=== PATIENT | female | born 1985 | race African-American/Black ===

== ENCOUNTER 2017-03-26 14:33 | Emergency (ER) | payer MEDICAID ==
[2017-03-26] MEDS ORDERED: HYDROMORPHONE HCL INJ/PF 2 MG/ML AMPULE IM ONE (15:53)
--- NOTE | 2017-03-26 16:16 | ER Document Report ---
HPI - HPI Patient complains to provider of: abscess Onset: Other - 2days Onset/Duration: Persistent Quality of pain: Sharp Pain Level: 5 Context: Patient complains of abscess to sacral area for the past 2 days. Patient denies any fever. Associated Symptoms: Other - Sacral abscess. denies: Fever Exacerbated by: Movement Relieved by: Denies Similar symptoms previously: Yes Recently seen / treated by doctor: No - ROS ROS below otherwise negative: Yes Systems Reviewed and Negative: Yes All other systems reviewed and negative - CONSTITUTIONAL Constitutional: DENIES: Fever - CARDIOVASCULAR Cardiovascular: DENIES: Chest pain - GASTROINTESTINAL Gastrointestinal: DENIES: Nausea, Patient vomiting - MUSCULOSKELETAL Musculoskeletal: REPORTS: Extremity pain - DERM Skin Color: Normal Past Medical History - General Information source: Patient - Social History Smoking Status: Current Every Day Smoker Chew tobacco use (# tins/day): No Frequency of alcohol use: None Drug Abuse: None 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 IN LAST 30 DAYS: No - HEENT HEENT: Atraumatic, Normocephalic - NECK Neck: Normal Inspection, Supple - RESPIRATORY Respiratory: Breath Sounds Normal, No Respiratory Distress O2 Sat by Pulse Oximetry: 97 - CARDIOVASCULAR Cardiovascular: Regular Rate, Regular Rhythm - BACK Back: Normal Inspection - MUSCULOSKELETAL/EXTREMETIES Musculoskeletal/Extremeties: MAEW, FROM - NEURO Level of Consciousness: Awake, Alert, Appropriate Motor/Sensory: No Motor Deficit - DERM Integumentary: Warm, Dry, Abscess - Abscess to left side of gluteal cleft measuring about 3 cm diameter Course - Vital Signs Vital signs: Temp Pulse Resp BP Pulse Ox 98.3 F 98 16 126/76 H 97 03/26/17 14:38 03/26/17 14:38 03/26/17 14:38 03/26/17 14:38 03/26/17 14:38 Procedures - Incision and Drainage Left Buttock Type: Simple Anesthetic type: 1% Lidocaine Blade size: 11 I&D procedure: Betadine prep applied Incision Method: Incision made by scalpel Amount/type of drainage: large amount of purulent drainage Discharge - Discharge Clinical Impression: Abscess, Encounter for incision and drainage procedure Condition: Stable Disposition: HOME, SELF-CARE Instructions: Abscess ([facility]), Oral Narcotic Medication ([facility]), Trimethoprim- Sulfa ([facility]), Post Incision and Drainage Additional Instructions: Return immediately for any new or worsening symptoms Followup with your primary care provider, call tomorrow to make a followup appointment Prescriptions: Oxycodone HCl/Acetaminophen [Percocet 5-325 mg Tablet] 1 tab PO ASDIR PRN #15 tablet PRN Reason: Sulfamethoxazole/Trimethoprim [Bactrim Ds Tablet] 1 each PO BID #20 tablet Forms: Return to Work
[2017-03-26] MEDS ORDERED: SULFAMETHOXAZOLE/TRIMETHOPRIM 800-160 MG TABLET PO ONE (17:27)
[2017-03-26 17:45] VITALS: BP 115/71
== END 2017-03-26 17:39 | disposition home or self-care (01) ==
LOC: ER 14:33
PROC: 0H98XZZ Drainage of Buttock Skin, External Approach (ICD-10-PCS; principal; 2017-03-26)
DX: L02.31 Cutaneous abscess of buttock (principal); F17.200 Nicotine dependence, unspecified, uncomplicated; I10 Essential (primary) hypertension; E11.9 Type 2 diabetes mellitus without complications
CPT/HCPCS: 99283; 96372; 10060; J1170; J3490

== ENCOUNTER 2017-06-14 16:16 | Emergency (ER) | payer MEDICAID ==
[2017-06-14] MEDS ORDERED: OXYCODONE-ACETAMINOPHEN 5-325 MG TABLET PO ONE (18:24)
--- NOTE | 2017-06-14 18:25 | ER Document Report ---
ED Medical Screen (RME) - General Chief Complaint: Low Back Pain Stated Complaint: LOWER BACK PAIN Time Seen by Provider: 06/14/17 18:23 Mode of Arrival: Wheelchair Information source: Patient Notes: Patient is a 31-year-old female who presents to the ER today for left flank pain 1 day. Patient has a history of kidney stones. She states that it does radiate around from the left lower back to the left lower abdomen. TRAVEL OUTSIDE OF THE [place] IN LAST 30 DAYS: No - Related Data Allergies/Adverse Reactions: amoxicillin Allergy (Verified 06/14/17 18:13) Penicillins Allergy (Verified 06/14/17 18:13) Past Medical History - General Information source: Patient - Social History Chew tobacco use (# tins/day): No Frequency of alcohol use: None Drug Abuse: None - Past Medical History Cardiac Medical History: Reports: Hx Hypertension Endocrine Medical History: Reports: Hx Diabetes Mellitus Type 2 Renal/ Medical History: Denies: Hx Peritoneal Dialysis Past Surgical History: Reports: Hx Oral Surgery - Immunizations Hx Diphtheria, Pertussis, Tetanus Vaccination: Yes History of Influenza Vaccine for 06/2017 - 11/2017 Season: Yes Review of Systems - Review of Systems Gastrointestinal: See HPI Genitourinary: See HPI Female Genitourinary: See HPI Physical Exam - Vital signs Vitals: Temp Pulse Resp BP Pulse Ox 98.0 F 123 H 22 H 119/73 100 06/14/17 17:31 06/14/17 17:31 06/14/17 17:31 06/14/17 17:31 06/14/17 17:31 - Notes Notes: PHYSICAL EXAMINATION: GENERAL: Obviously uncomfortable, in no acute distress. GI/: left CVA tenderness Course - Vital Signs Vital signs: Temp Pulse Resp BP Pulse Ox 98.0 F 123 H 22 H 119/73 100 06/14/17 17:31 06/14/17 17:31 06/14/17 17:31 06/14/17 17:31 06/14/17 17:31
[2017-06-14 19:01] LABS: HEMOGLOBIN 13.7 g/dL (12.0-15.5); HGB HCT DIFFERENCE -0.9; MEAN CORPUSCULAR HEMOGLOBIN 26.1 pg (27.0-33.4); MEAN CORPUSCULAR HGB CONC 32.7 g/dL (32.0-36.0); MEAN CORPUSCULAR VOLUME 80 fl (80-97); RED BLOOD COUNT 5.25 10^6/uL (3.72-5.28); RED CELL DISTRIBUTION WIDTH 14.1 % (11.5-14.0); WHITE BLOOD COUNT 19.6 10^3/uL (4.0-10.5)
[2017-06-14 19:08] LABS: APPEARANCE,URINE SLIGHTLY-CLOUDY; BILIRUBIN,URINE NEGATIVE (NEGATIVE); GLUCOSE, URINE >=500 mg/dL (NEGATIVE); KETONES,URINE NEGATIVE (NEGATIVE); LEUKOCYTE ESTERASE,URINE TRACE (NEGATIVE); NITRITE,URINE NEGATIVE (NEGATIVE); PROTEIN,URINE NEGATIVE (NEGATIVE); UROBILINOGEN,URINE NEGATIVE mg/dL (<2.0)
[2017-06-14 19:13] LABS: BASOPHILS % (MANUAL) 0 % (0-2); EOSINOPHILS % (MANUAL) 2 % (0-6); LYMPHOCYTES % (MANUAL) 28 % (13-45); TOTAL CELLS COUNTED 100
[2017-06-14 19:15] LABS: ANISOCYTOSIS SLIGHT; MICROCYTOSIS SLIGHT; POIKILOCYTOSIS SLIGHT; TARGET CELLS 1+; TEAR DROP CELLS SLIGHT; TOXIC GRANULATION SLIGHT; TOXIC VACUOLATION PRESENT
[2017-06-14 19:16] LABS: PLATELET CLUMPS PRESENT
[2017-06-14 19:17] LABS: HYPOCHROMASIA SLIGHT
[2017-06-14 19:23] LABS: ALANINE AMINOTRANSFERASE 22 U/L (9-52); ALBUMIN 4.1 g/dL (3.5-5.0); ALKALINE PHOSPHATASE 146 U/L (38-126); ANION GAP 16 (5-19); ASPARTATE AMINO TRANSFERASE 12 U/L (14-36); BILIRUBIN,DIRECT 0.3 mg/dL (0.0-0.4); BILIRUBIN,TOTAL 0.3 mg/dL (0.2-1.3); BLOOD UREA NITROGEN 11 mg/dL (7-20); CALCIUM 9.9 mg/dL (8.4-10.2); CARBON DIOXIDE 24 mmol/L (22-30); CHLORIDE 98 mmol/L (98-107); LIPASE 73.3 U/L (23-300); POTASSIUM 4.7 mmol/L (3.6-5.0); SODIUM 137.7 mmol/L (137-145); TOTAL PROTEIN 6.6 g/dL (6.3-8.2)
[2017-06-14 19:52] LABS: GLUCOSE 559 mg/dL (75-110)
[2017-06-14] MEDS ORDERED: NORMAL SALINE 1000 ML 1,000 ML IV ONE ×2 (20:08)
[2017-06-14] MEDS ORDERED: ONDANSETRON HCL INJ/PF 4 MG/2 ML SDV IV ONE (20:09)
--- NOTE | 2017-06-14 20:11 | ER Document Report ---
ED General - General Chief Complaint: Low Back Pain Stated Complaint: LOWER BACK PAIN Time Seen by Provider: 06/14/17 18:23 Mode of Arrival: Wheelchair Notes: Patient is a 31-year-old female comes emergency department for chief complaint of left flank pain that started yesterday, she states it feels like it radiates around to her mid to lower abdomen on the left side, she reports nausea but she denies vomiting. She also states that she feels like her "sugars are out of whack". She is a type II diabetic, takes metformin, insulin, states she has been taking insulin today. She denies fever, dysuria, she states she has been able to eat and drink. She also is on her menstrual cycle currently. Past medical history of kidney stones. TRAVEL OUTSIDE OF THE [place] IN LAST 30 DAYS: No - Related Data Allergies/Adverse Reactions: amoxicillin Allergy (Verified 06/14/17 18:13) Penicillins Allergy (Verified 06/14/17 18:13) Past Medical History - General Information source: Patient - Social History Smoking Status: Never Smoker Chew tobacco use (# tins/day): No Frequency of alcohol use: None Drug Abuse: None Lives with: Family Family History: Reviewed & Not Pertinent Patient has suicidal ideation: No Patient has homicidal ideation: No - Past Medical History Cardiac Medical History: Reports: Hx Hypertension Endocrine Medical History: Reports: Hx Diabetes Mellitus Type 2 Renal/ Medical History: Reports: Hx Kidney Stones. Denies: Hx Peritoneal Dialysis Past Surgical History: Reports: Hx Oral Surgery - Immunizations Hx Diphtheria, Pertussis, Tetanus Vaccination: Yes Review of Systems - Review of Systems Constitutional: No symptoms reported EENT: No symptoms reported Cardiovascular: No symptoms reported Respiratory: No symptoms reported Gastrointestinal: See HPI Genitourinary: See HPI Female Genitourinary: No symptoms reported Musculoskeletal: No symptoms reported Skin: No symptoms reported Hematologic/Lymphatic: No symptoms reported Neurological/Psychological: No symptoms reported Physical Exam - Vital signs Vitals: Temp Pulse Resp BP Pulse Ox 98.0 F 123 H 22 H 119/73 100 06/14/17 17:31 10 17:31 06/14/17 17:31 06/14/17 17:31 06/14/17 17:31 Interpretation: Normal - General General appearance: Appears well, Alert In distress: None - HEENT Head: Normocephalic, Atraumatic Eyes: Normal Pupils: PERRL - Respiratory Respiratory status: No respiratory distress Chest status: Nontender Breath sounds: Normal. No: Decreased air movement, Wheezing Chest palpation: Normal - Cardiovascular Rhythm: Regular, Tachycardia Heart sounds: Normal auscultation, S1 appreciated, S2 appreciated Murmur: No - Abdominal Inspection: Normal Distension: No distension Bowel sounds: Normal Tenderness: Tender - Tenderness in the left mid to lower quadrant on examination , no guarding, no rigidity, no rebound tenderness Organomegaly: No organomegaly - Back Back: Normal, Nontender. No: Tender, CVA tenderness - I do not appreciate any CVA tenderness on exam on either side, Vertebra tenderness - Extremities General upper extremity: Normal inspection, Nontender, Normal color, Normal ROM , Normal temperature General lower extremity: Normal inspection, Nontender, Normal color, Normal ROM , Normal temperature, Normal weight bearing. No: Ray's sign - Neurological Neuro grossly intact: Yes Cognition: Normal Orientation: AAOx4 Nimisha Coma Scale Eye Opening: Spontaneous Madison Coma Scale Verbal: Oriented [place] Coma Scale Motor: Obeys Commands Nimisha Coma Scale Total: 15 Speech: Normal Motor strength normal: LUE, RUE, LLE, RLE Sensory: Normal - Psychological Associated symptoms: Normal affect, Normal mood - Skin Skin Temperature: Warm Skin Moisture: Dry Skin Color: Normal Course - Re-evaluation Re-evalutation: Patient is actually well-appearing, smiling, laughing, she is initially tachycardic but otherwise she does not appear to be in any distress. She was medicated in triage. No CVA tenderness, very mild left lower quadrant tenderness which is nonspecific, no pelvic tenderness, patient denying pelvic pain or vaginal discharge. Patient does have a leukocytosis at 19,000, although no shift. There is elevated urine specific gravity, tachycardia. Tachycardia resolved with IV fluids, based on her initial assessment and recheck on exam I do not have any concern of acute abdominal abnormality. Appendix and gallbladder visualized and normal. Hyperglycemia at 559 but normal anion gap and bicarbonate. No ketones in the urine. CAT scan was performed, shows no obstructive pathology, shows unremarkable bowels, shows normal appendix. No acute findings. Patient is very well- appearing, tachycardia resolved, she is sitting up on the bed and asking to leave. Blood glucose is trending down. She states she has insulin and glucometer at home. Because of her leukocytosis and symptoms I did discuss return precautions in detail, patient states she will return if she develops any concerning symptoms but currently she feels great and she is ready to leave. She states she will follow-up with primary care as well. - Vital Signs Vital signs: Temp Pulse Resp BP Pulse Ox 98.0 F 68 18 104/63 98 06/14/17 17:31 06/14/17 23:21 06/14/17 23:21 06/14/17 23:21 06/14/17 23:21 - Laboratory Result Diagrams: 06/14/17 18:50 06/14/17 18:50 Laboratory results interpreted by me: 06/14/17 06/14/17 06/14/17 18:50 18:50 18:50 WBC 19.6 H MCH 26.1 L RDW 14.1 H Abs Neuts (Manual) 12.9 H Abs Lymphs (Manual) 5.7 H Glucose 559 H* POC Glucose AST 12 L Alkaline Phosphatase 146 H Urine Glucose (UA) >=500 H Urine Blood LARGE H Ur Leukocyte Esterase TRACE H 06/14/17 22:28 WBC MCH RDW Abs Neuts (Manual) Abs Lymphs (Manual) Glucose POC Glucose 341 H AST Alkaline Phosphatase Urine Glucose (UA) Urine Blood Ur Leukocyte Esterase Discharge - Discharge Clinical Impression: Flank pain, Hyperglycemia Condition: Stable Disposition: HOME, SELF-CARE Additional Instructions: Your CAT scan imaging does not show any abnormalities including no kidney stones or passing kidney stones. You have been rehydrated, continue to rehydrate at home, take your insulin, follow-up closely with your primary care provider for additional adjustments and management of your blood sugars. Return to the emergency department if he develop any concerning or worsening symptoms including fever, vomiting, returned or increased pain, or any other concerning symptoms. Forms: Return to Work Referrals: JUANCARLOS SILVA MD [Primary Care Provider] - Follow up as needed
--- NOTE | 2017-06-14 20:32 | RADIOLOGY REPORT (SQ) ---
EXAM DESCRIPTION: CT LTD RENAL STONE PROTOCOL ON COMPLETED DATE/TIME: 06/14/2017 8:23 pm REASON FOR STUDY: left flank pain radiating to llq COMPARISON: None. TECHNIQUE: CT scan of the abdomen and pelvis performed without intravenous or oral contrast. Images reviewed with lung, soft tissue, and bone windows. Reconstructed coronal and sagittal MPR images revi ewed. All images stored on PACS. All CT scanners at this facility use dose modulation, iterative reconstruction, and/or weight based d osing when appropriate to reduce radiation dose to as low as reasonably achievable (ALARA). [facility]: Dose Right [facility]: CareDose [facility]: Dose Right [facility]: Teradose 4D [facility]: Manifest RADIATION DOSE: Up-to-date CT equipment and radiation dose reduction techniques were employed. CTDIv ol: 17.9 mGy. DLP: 942 mGy-cm.mGy. LIMITATIONS: None. FINDINGS: LOWER CHEST: No significant findings. No nodules or infiltrates. NON-CONTRASTED LIVER, SPLEEN, ADRENALS: Evaluation limited by lack of IV contrast. No identified sign ificant masses. PANCREAS: No masses. No peripancreatic inflammatory changes. GALLBLADDER: No identified stones by CT criteria. No inflammatory changes to suggest cholecystitis. RIGHT KIDNEY AND URETER: No suspicious masses. Assessment limited by lack of IV contrast. No signif icant calcifications. No hydronephrosis or hydroureter. LEFT KIDNEY AND URETER: No suspicious masses. Assessment limited by lack of IV contrast. No signifi cant calcifications. No hydronephrosis or hydroureter. AORTA AND RETROPERITONEUM: No aneurysm. No retroperitoneal masses or adenopathy. BOWEL AND PERITONEAL CAVITY: No obvious masses or inflammatory changes. No free fluid. APPENDIX: Normal. PELVIS, BLADDER, AND ABDOMINAL WALL:No abnormal masses. No free fluid. Bladder normal. BONES: No significant findings. OTHER: No other significant finding. IMPRESSION: NO SIGNIFICANT OR ACUTE PROCESS IN THE ABDOMEN OR PELVIS. COMMENT: Quality ID # [id number]: Final reports with documentation of one or more dose reduction techniques (e.g., Automated exposure control, adjustment of the mA and/or kV according to patient size, use of iterative reconstruction technique) TECHNICAL DOCUMENTATION: JOB ID: [id number] All Rights Reserved
[2017-06-14] MEDS ORDERED: INSULIN REG, HUMAN 100 UNIT/ML 3 ML VIAL (PYX) SUBCUT ONE (20:49)
[2017-06-14] MEDS ORDERED: HYDROCODONE/ACETAMINOPHEN 5-325 MG 6 TAB/DSPK PO PRN (22:55)
[2017-06-14 23:22] VITALS: BP 104/63
== END 2017-06-14 23:22 | disposition home or self-care (01) ==
LOC: ER 16:16
DX: R10.9 Unspecified abdominal pain (principal); R11.0 Nausea; E11.65 Type 2 diabetes mellitus with hyperglycemia; I10 Essential (primary) hypertension; D72.829 Elevated white blood cell count, unspecified; R00.0 Tachycardia, unspecified; Z79.4 Long term (current) use of insulin; Z79.84 Long term (current) use of oral hypoglycemic drugs; Z88.0 Allergy status to penicillin; Z87.442 Personal history of urinary calculi
CPT/HCPCS: 99284; 96361; 96374; 36415; 82962; 83690; 85025; 81025; 80053; 81001; 76380; J1815; J2405; J7030

== ENCOUNTER 2017-06-28 20:27 | Emergency (ER) | payer MEDICAID ==
[2017-06-28] MEDS ORDERED: CLINDAMYCIN HCL 150 MG CAPSULE PO ONE (22:26)
--- NOTE | 2017-06-28 22:29 | ER Document Report ---
ED General - General Chief Complaint: Allergic Reaction Stated Complaint: POSSIBLE ALLERGIC REACTION Time Seen by Provider: 06/28/17 22:19 Notes: Patient is a 31-year-old female presents with complaint of an allergic reaction. Patient says she has a prescription from her Bactrim. She has a history of recurrent "cyst" in the right inguinal area. The cyst just outside the vaginal vulva. She says in the past these have resolved with antibiotics. She took Bactrim for the first time tonight the Bactrim caused her to break out in a rash and itching all over. The rash has since resolved. She has fevers. She has no other complaints at this time. TRAVEL OUTSIDE OF THE [place] IN LAST 30 DAYS: No - Related Data Allergies/Adverse Reactions: amoxicillin Allergy (Verified 06/28/17 22:38) Penicillins Allergy (Verified 06/28/17 22:38) Past Medical History - Social History Smoking Status: Never Smoker Frequency of alcohol use: None Drug Abuse: None Family History: Reviewed & Not Pertinent - Past Medical History Cardiac Medical History: Reports: Hx Hypertension Endocrine Medical History: Reports: Hx Diabetes Mellitus Type 2 Renal/ Medical History: Reports: Hx Kidney Stones. Denies: Hx Peritoneal Dialysis Past Surgical History: Reports: Hx Oral Surgery - Immunizations Hx Diphtheria, Pertussis, Tetanus Vaccination: Yes Review of Systems - Review of Systems Notes: My Normal Review Basic REVIEW OF SYSTEMS: CONSTITUTIONAL : Denies fever, chills, or sweats. Denies recent illness. RESPIRATORY: Denies cough, cold, or chest congestion. Denies shortness of breath, difficulty breathing, or wheezing. GASTROINTESTINAL: Denies abdominal pain. Denies nausea, vomiting, or diarrhea. Denies constipation. Last BM: GENITOURINARY: Denies difficulty urinating, painful urination, burning, frequency, or blood in urine. FEMALE GENITOURINARY: "Cyst" just outside the vaginal vulva. MUSCULOSKELETAL: Denies neck or back pain or joint pain or swelling. SKIN: Rash has since resolved. NEUROLOGICAL: Denies altered mental status or loss of consciousness. Denies headache. Denies weakness or paralysis or loss of use of either side. Denies problems with gait or speech. Denies sensory or motor loss. ALL OTHER SYSTEMS REVIEWED AND NEGATIVE. Physical Exam - Vital signs Vitals: Temp Pulse Resp BP Pulse Ox 98.6 F 88 18 113/51 L 100 10/23/17 21:50 06/28/17 21:50 06/28/17 21:50 06/28/17 21:50 06/28/17 21:50 - Notes Notes: General Appearance: Well nourished, alert, cooperative, no acute distress, no obvious discomfort. Well-appearing. Vitals: reviewed, See vital signs table. Head: no swelling or tenderness to the head Eyes: PERRL, EOMI, Conjuctiva clear Mouth: No decreasd moisture Throat: No tonsillar inflammation, No airway obstruction, No lymphadenopathy Lungs: No wheezing, No rales, No rhonci, No accessory muscle use, good air exchange bilaterally. Heart: Normal rate, Regular rythm, No murmur, no rub Pelvic: Patient has a cyst just lateral to the right side of the vaginal vulva. There are 2 other females in the room when I looked at the area. When I asked patient where the cyst was she immediately pulled down her pants before I could tell her to wait for an official female mortgage closer. There is a cyst just to the right of the vaginal vulva. It is small. Consistent with a early abscess. Does not require incision and drainage at this time. No significant surrounding erythema. Extremities: strength 5/5 in all extremities, good pulses in all extremities, no swelling or tenderness in the extremities, no edema. Skin: warm, dry, appropriate color, no rash Neuro: speech clear, oriented x 3, normal affect, responds appropriately to questions. Course - Re-evaluation Re-evalutation: 06/28/17 22:49 Patient has a small cystic area just lateral to the vaginal area on the right side. Is not consistent with a Bartholin's gland cyst and that that is actually outside the vaginal labia. It is consistent with possible early abscess but is very small and does not require drainage at this time. She says she has had these in the past and have cleared with antibiotics. She obviously is allergic to sulfa medications. I informed her that she must always tell her physicians that she is allergic to sulfa medications. I will place on clindamycin. I informed her that if the area is not improving in 2-3 days she must return to ER to consider I&D and reevaluation. Informed her if it enlarges any way she must return to ER immediately for incision and drainage. Encouraged her return to ER immediately if she has fevers. Patient agrees with plan will be discharged home. Dictation of this chart was performed using voice recognition software; therefore, there may be some unintended grammatical errors. - Vital Signs Vital signs: Temp Pulse Resp BP Pulse Ox 98.6 F 88 18 113/51 L 100 06/28/17 21:50 06/28/17 21:50 06/28/17 21:50 06/28/17 21:50 06/28/17 21:50 Discharge - Discharge Clinical Impression: Cyst Allergic reaction Qualifiers: Encounter type: initial encounter Qualified Code(s): T78.40XA - Allergy, unspecified, initial encounter Condition: Good Disposition: HOME, SELF-CARE Additional Instructions: The small cyst is most likely the beginning of a small abscess. Please be sure to take the antibiotics as prescribed. You must return to the ER immediately if at any time the cyst enlarges or is getting worse. Enlargement of the cyst would mean that it needs to be cut open to drain. Please also return to the ER if the cyst is not improving after being on the antibiotics after 3 days. Please tell every doctor you see that you are allergic to Sulfa drugs. Prescriptions: Clindamycin HCl 300 mg PO ASDIR #56 capsule Fluconazole [Diflucan 100 Mg Tablet] 150 mg PO DAILY #1 tablet Forms: Return to Work
[2017-06-28 22:59] VITALS: BP 107/51
== END 2017-06-28 22:50 | disposition home or self-care (01) ==
LOC: ER 20:27
DX: N89.8 Other specified noninflammatory disorders of vagina (principal); L27.0 Generalized skin eruption due to drugs and medicaments taken internally; T37.0X5A Adverse effect of sulfonamides, initial encounter; E11.9 Type 2 diabetes mellitus without complications; I10 Essential (primary) hypertension; Z88.0 Allergy status to penicillin; Z87.442 Personal history of urinary calculi
CPT/HCPCS: 99283; J3490

== ENCOUNTER 2017-09-09 14:07 | Emergency (ER) | payer MEDICAID ==
--- NOTE | 2017-09-09 14:34 | ER Document Report ---
HPI - HPI Patient complains to provider of: Buttocks abscess Onset: Other - 2 days Onset/Duration: Worse Pain Level: 5 Context: 32-year-old diabetic whose glucose was 346 today is complaining of a right buttocks abscess. No history of MRSA but she has had a groin abscess in the past. She checks her glucoses at home with fingersticks and takes insulin, she did not take her Lantus 45 units last night because she was asleep and does not have NovoLog at home to cover for the glucose of 346. She agrees to letting me do an Accu-Chek and covering her with insulin here she promises that she will take her Lantus tonight.. No fever or chills. She is very anxious about this procedure and agrees to having an incision and drainage but needs medication to relax her. She also states that she always gets a vaginal yeast infection when she takes antibiotics. She is allergic to penicillins and sulfa. Apical pulse 100. Temperature 98.8. Past Medical History - General Information source: Patient - Social History Smoking Status: Never Smoker Frequency of alcohol use: None Drug Abuse: None Lives with: Spouse/Significant other Family History: Reviewed & Not Pertinent - Past Medical History Cardiac Medical History: Reports: Hx Hypertension Endocrine Medical History: Reports: Hx Diabetes Mellitus Type 2 Renal/ Medical History: Reports: Hx Kidney Stones. Denies: Hx Peritoneal Dialysis Skin Medical History: Denies Hx MRSA Past Surgical History: Reports: Hx Oral Surgery - Immunizations Hx Diphtheria, Pertussis, Tetanus Vaccination: Yes Vertical Provider Document - CONSTITUTIONAL Agree With Documented VS: Yes Exam Limitations: No Limitations - INFECTION CONTROL TRAVEL OUTSIDE OF THE [place] IN LAST 30 DAYS: No - HEENT HEENT: Normocephalic - NECK Neck: Supple - RESPIRATORY Respiratory: Breath Sounds Normal, No Respiratory Distress O2 Sat by Pulse Oximetry: 98 - CARDIOVASCULAR Cardiovascular: Regular Rate, Regular Rhythm - MUSCULOSKELETAL/EXTREMETIES Musculoskeletal/Extremeties: MUSTAPHA HERNANDEZ - NEURO Level of Consciousness: Awake, Alert, Appropriate, Agitated - DERM Integumentary: Abscess - 4cm flutuant not red right buttock inferior to gluteal crest Course - Re-evaluation Re-evalutation: 09/09/17 16:00 Patient now states that Dr. Byrne told her to tell everybody that she is allergic to sulfa but not penicillin or amoxicillin. She is able to take Rocephin which I will order because she states the last time she took clindamycin given in the emergency room she got hives and she had to take Benadryl. She did not take another dose of clindamycin after that was given. 09/09/17 16:[address] Lockwood who says get the urine to see if she spilling any ketones. He is aware of her glucose and the situation. He said to give her 10 units of NovoLog. 09/09/17 18:37 late entry ketones negative. accucheck down to 321. Pt ready to go home - Vital Signs Vital signs: Temp Pulse Resp BP Pulse Ox 98.8 F 115 H 16 142/76 H 98 09/09/17 14:13 09/09/17 14:13 09/09/17 14:13 09/09/17 14:13 09/09/17 14:13 - Laboratory Result Diagrams: 09/09/17 15:21 09/09/17 15:21 Procedures - Incision and Drainage Right Buttock Time completed: 16:56 Type: Simple Anesthetic type: 1% Lidocaine mL's of anesthetic: 2 Blade size: 11 I&D procedure: Betadine prep applied Incision Method: Incision made by scalpel - Large amount of pus and blood smells like gram-negative bacteria will start her on Cipro and Flagyl because of that. Discharge - Discharge Clinical Impression: Incision and drainage of buttocks absces, Hyperglycemia known diabetic Condition: Good Disposition: HOME, SELF-CARE Instructions: Abscess ([facility]), Acetaminophen, Ciprofloxacin ([facility]), Fluconazole ( [facility]), Hyperglycemia ([facility]), Intravenous (IV) Fluids ([facility]), Metronidazole ([facility]), Post Incision and Drainage, Rocephin ([facility]) Additional Instructions: Keep the original dressing on for 2 days go get your novolog insulin today, take your lantus tonight! Remove the dressing on Wednesday and january shower using washcloth and let the soap and water get into the wound to clean it then placed dry dressing Return to the emergency room any fever chills worsening symptoms Diflucan for possible vaginal yeast infection Cipro and metronidazole for antibiotics No alcohol when he take the metronidazole warm compress wound cx is pending Prescriptions: Ciprofloxacin HCl [Cipro 500 mg Tablet] 500 mg PO BID #14 tablet Metronidazole [Flagyl 500 mg Tablet] 500 mg PO QID #28 tablet Forms: Return to Work
[2017-09-09] MEDS ORDERED: ACETAMINOPHEN 325 MG TABLET PO ONE (14:43)
[2017-09-09] MEDS ORDERED: ONDANSETRON 4 MG TAB.RAPDIS PO ONE (14:43)
[2017-09-09] MEDS ORDERED: CLINDAMYCIN HCL 150 MG CAPSULE PO ONE (14:43)
[2017-09-09] MEDS ORDERED: LIDOCAINE 4%/TETRACAINE 0.5%/EPI 0.18% 5 ML TOPICAL SOLN TOP ONE (14:44)
[2017-09-09] MEDS ORDERED: LORAZEPAM 1 MG TABLET PO ONE (14:45)
[2017-09-09] MEDS ORDERED: NORMAL SALINE 1000 ML 2,000 ML IV ONE (14:56)
[2017-09-09] MEDS ORDERED: CLINDAMYCIN PHOSPHATE INJ 300 MG/2 ML SDV IV ONE (14:57)
[2017-09-09 15:44] LABS: HEMOGLOBIN 13.1 g/dL (12.0-15.5); MEAN CORPUSCULAR HEMOGLOBIN 25.8 pg (27.0-33.4); MEAN CORPUSCULAR HGB CONC 32.6 g/dL (32.0-36.0); MEAN CORPUSCULAR VOLUME 79 fl (80-97); PLATELET COUNT 256 10^3/uL (150-450); RED BLOOD COUNT 5.07 10^6/uL (3.72-5.28); RED CELL DISTRIBUTION WIDTH 13.7 % (11.5-14.0)
[2017-09-09 15:55] LABS: ALANINE AMINOTRANSFERASE 31 U/L (9-52); ALBUMIN 3.7 g/dL (3.5-5.0); ALKALINE PHOSPHATASE 172 U/L (38-126); ANION GAP 12 (5-19); ASPARTATE AMINO TRANSFERASE 21 U/L (14-36); BILIRUBIN,DIRECT 0.2 mg/dL (0.0-0.4); BILIRUBIN,TOTAL 0.3 mg/dL (0.2-1.3); BLOOD UREA NITROGEN 7 mg/dL (7-20); CALCIUM 9.7 mg/dL (8.4-10.2); CARBON DIOXIDE 27 mmol/L (22-30); CHLORIDE 99 mmol/L (98-107); POTASSIUM 4.3 mmol/L (3.6-5.0); SODIUM 137.7 mmol/L (137-145); TOTAL PROTEIN 6.3 g/dL (6.3-8.2)
[2017-09-09] MEDS ORDERED: CEFTRIAXONE 1 GM/D5W RTU 1 GM/50 ML RTUPB IV ONE (16:00)
[2017-09-09 16:09] LABS: GLUCOSE 447 mg/dL (75-110)
[2017-09-09 16:13] LABS: ABSOLUTE LYMPHOCYTES# (MANUAL) 3.9 10^3/uL (0.5-4.7); ABSOLUTE NEUTROPHILS# (MANUAL) 19.1 10^3/uL (1.7-8.2); BAND NEUTROPHILS % (MANUAL) 2 % (3-5); BASOPHILS % (MANUAL) 0 % (0-2); EOSINOPHILS % (MANUAL) 0 % (0-6); LYMPHOCYTES % (MANUAL) 16 % (13-45); MONOCYTES % (MANUAL) 0 % (3-13); SEGMENTED NEUTROPHILS % (MAN) 81 % (42-78); TOTAL CELLS COUNTED 100
[2017-09-09 16:15] LABS: PLATELET CLUMPS PRESENT; PLATELET GIANT PRESENT; PLATELET LARGE PRESENT; SMUDGE CELLS PRESENT
[2017-09-09 16:16] LABS: HYPOCHROMASIA SLIGHT
[2017-09-09] MEDS ORDERED: INSULIN REG, HUMAN 100 UNIT/ML 3 ML VIAL (PYX) SUBCUT ONE (16:17)
[2017-09-09] MEDS ORDERED: INSULIN LISPRO 100 UNIT/ML 3 ML VIAL SUBCUT ONE (16:19)
[2017-09-09 16:21] LABS: PLATELET COMMENT ADEQUATE
[2017-09-09] MEDS ORDERED: CIPROFLOXACIN HCL 500 MG TABLET PO ONE (16:49)
[2017-09-09] MEDS ORDERED: METRONIDAZOLE 500 MG TABLET PO ONE (16:49)
[2017-09-09 17:42] LABS: APPEARANCE,URINE CLEAR; BILIRUBIN,URINE NEGATIVE (NEGATIVE); COLOR,URINE STRAW; GLUCOSE, URINE >=500 mg/dL (NEGATIVE); KETONES,URINE NEGATIVE (NEGATIVE); LEUKOCYTE ESTERASE,URINE NEGATIVE (NEGATIVE); NITRITE,URINE NEGATIVE (NEGATIVE); PROTEIN,URINE NEGATIVE (NEGATIVE); URINE SPECIFIC GRAVITY 1.026; UROBILINOGEN,URINE NEGATIVE mg/dL (<2.0)
[2017-09-09 18:22] VITALS: BP 114/50
== END 2017-09-09 18:22 | disposition home or self-care (01) ==
LOC: ER 14:07
DX: L02.31 Cutaneous abscess of buttock (principal); E11.65 Type 2 diabetes mellitus with hyperglycemia; Z79.4 Long term (current) use of insulin; F41.9 Anxiety disorder, unspecified; I10 Essential (primary) hypertension; Z88.2 Allergy status to sulfonamides
CPT/HCPCS: 99283; 96361; 96365; 36415; 87040; 87070; 87205; 82962; 85025; 87075; 87077; 80053; 81001; 87186; 10060; J3490 ×4; S0119; J1815; J7030; J0696

== ENCOUNTER 2018-02-16 11:53 | Emergency (ER) | payer MEDICAID ==
[2018-02-16 12:13] VITALS: BP 114/50
[2018-02-16] MEDS ORDERED: IBUPROFEN 800 MG TABLET PO ONE (13:34)
[2018-02-16] MEDS ORDERED: ACETAMINOPHEN 325 MG TABLET PO ONE (13:34)
--- NOTE | 2018-02-16 13:34 | ER Document Report ---
ED Medical Screen (RME) - General Chief Complaint: Abscess Stated Complaint: ABSCESS Time Seen by Provider: 02/16/18 13:29 TRAVEL OUTSIDE OF THE [place] IN LAST 30 DAYS: No - HPI Notes: 02/16/18 13:34 Abscess on buttocks - Related Data Allergies/Adverse Reactions: amoxicillin Allergy (Verified 02/16/18 13:29) clindamycin Allergy (Verified 02/16/18 13:29) Penicillins Allergy (Verified 02/16/18 13:29) Sulfa (Sulfonamide Antibiotics) Allergy (Verified 02/16/18 13:29) Past Medical History - Social History Chew tobacco use (# tins/day): No Frequency of alcohol use: None Drug Abuse: None - Past Medical History Cardiac Medical History: Reports: Hx Hypertension Endocrine Medical History: Reports: Hx Diabetes Mellitus Type 2 Renal/ Medical History: Reports: Hx Kidney Stones. Denies: Hx Peritoneal Dialysis Skin Medical History: Denies Hx MRSA Past Surgical History: Reports: Hx Oral Surgery - Immunizations Hx Diphtheria, Pertussis, Tetanus Vaccination: Yes History of Influenza Vaccine for 06/2017 - 11/2017 Season: Yes Review of Systems - Review of Systems Skin: Other - Abscess on the buttocks -: Yes All other systems reviewed and negative Physical Exam - Vital signs Vitals: Temp Pulse Resp BP Pulse Ox 98.9 F 95 20 114/50 L 99 02/16/18 12:12 02/16/18 12:12 02/16/18 12:12 02/16/18 12:12 02/16/18 12:12 - Respiratory Respiratory status: No respiratory distress Chest status: Nontender Course - Vital Signs Vital signs: Temp Pulse Resp BP Pulse Ox 98.9 F 95 20 114/50 L 99 02/16/18 12:12 02/16/18 12:12 02/16/18 12:12 02/16/18 12:12 02/16/18 12:12
[2018-02-16] MEDS ORDERED: LIDOCAINE 4%/TETRACAINE 0.5%/EPI 0.18% 5 ML TOPICAL SOLN TOP ONE (14:35)
--- NOTE | 2018-02-16 14:35 | ER Document Report ---
ED Skin Rash/Insect Bite/Abscs <TOMYVALENTE - Last Filed: 02/16/18 15:54> - General Mode of Arrival: Ambulatory Information source: Patient TRAVEL OUTSIDE OF THE [place] IN LAST 30 DAYS: No <STEPHANIE HERNANDEZ - Last Filed: 02/16/18 19:46> - General Chief Complaint: Abscess Stated Complaint: ABSCESS Time Seen by Provider: 02/16/18 13:29 Notes: Patient is a 32 year old female with hypertension, diabetes type 2 with a history of kidney stones and an abscess presents to the emergency department complaining of an abscess on the right side of her inner buttocks. Patient states she noticed the abscess around 1800 yesterday. Patient states she was seen and discharged in the emergency department approximately 2 months ago for an abscess in the same location. Patient mentions being seen by her PCP yesterday for having elevated a1c's. She states her Lantus was increased from 45 units to 70 units and her NovoLog remained the same at 18 units 3x a day. She then states she has yet to shrimp picker her NovoLog from the pharmacy. (STEPHANIE HERNANDEZ) - Related Data Allergies/Adverse Reactions: amoxicillin Allergy (Verified 02/16/18 13:29) clindamycin Allergy (Verified 02/16/18 13:29) Penicillins Allergy (Verified 02/16/18 13:29) Sulfa (Sulfonamide Antibiotics) Allergy (Verified 02/16/18 13:29) Past Medical History - General Information source: Patient - Social History Smoking Status: Current Every Day Smoker Cigarette use (# per day): Yes - 5-6 cigarettes a day Chew tobacco use (# tins/day): No Frequency of alcohol use: None Drug Abuse: None Family History: Reviewed & Not Pertinent Patient has suicidal ideation: No Patient has homicidal ideation: No - Past Medical History Cardiac Medical History: Reports: Hx Hypertension Endocrine Medical History: Reports: Hx Diabetes Mellitus Type 2 Renal/ Medical History: Reports: Hx Kidney Stones Past Surgical History: Reports: Hx Oral Surgery - Immunizations Hx Diphtheria, Pertussis, Tetanus Vaccination: Yes <STEPHANIE HERNANDEZ - Last Filed: 02/16/18 19:46> Review of Systems - Review of Systems Constitutional: No symptoms reported EENT: No symptoms reported Cardiovascular: No symptoms reported Respiratory: No symptoms reported Gastrointestinal: No symptoms reported Genitourinary: No symptoms reported Female Genitourinary: No symptoms reported Musculoskeletal: No symptoms reported Skin: See HPI Hematologic/Lymphatic: No symptoms reported Neurological/Psychological: No symptoms reported -: Yes All other systems reviewed and negative <STEPHANIE HERNANDEZ - Last Filed: 02/16/18 19:46> Physical Exam <VALENTE HUITRON - Last Filed: 02/16/18 15:54> - General General appearance: Appears well, Alert In distress: None - HEENT Head: Normocephalic, Atraumatic Eyes: Normal Conjunctiva: Normal Extraocular movements intact: Yes Pupils: PERRL Neck: Normal - Respiratory Respiratory status: No respiratory distress - Abdominal Inspection: Other - Overweight Distension: No distension - Rectal Tenderness: Yes - Back Back: Normal - Extremities General upper extremity: Normal ROM General lower extremity: Normal ROM - Neurological Neuro grossly intact: Yes Cognition: Normal Orientation: AAOx4 Brooks Coma Scale Eye Opening: Spontaneous Brooks Coma Scale Verbal: Oriented Brooks Coma Scale Motor: Obeys Commands Brooks Coma Scale Total: 15 Speech: Normal - Psychological Associated symptoms: Normal affect, Normal mood - Skin Skin Temperature: Warm Skin Moisture: Dry Skin Color: Normal <STEPHANIE HERNANDEZ - Last Filed: 02/16/18 19:46> - Vital signs Vitals: Temp Pulse Resp BP Pulse Ox 98.9 F 95 20 114/50 L 99 02/16/18 12:12 02/16/18 12:12 02/16/18 12:12 02/16/18 12:12 02/16/18 12:12 - Rectal Notes: Right buttocks contains an abscess midline, close to the right of the buttock cleft. Abscess is bulging and pointing with induration. Extends 6cm across the upper sacral region and is tender to palpation. (STEPHANIE HERNANDEZ) Course - Laboratory Result Diagrams: 02/16/18 14:55 02/16/18 14:55 <VALENTE HUITRON - Last Filed: 02/16/18 15:54> - Laboratory Result Diagrams: 02/16/18 14:55 02/16/18 14:55 <STEPHANIE HERNANDEZ - Last Filed: 02/16/18 19:46> - Re-evaluation Re-evalutation: 02/16/18 16:04 PROCEEDURE: The right buttock abscess near the cleft head the skin prepped with Shur-Clens. The abscess area was anesthetized with 5 mL's of 1% lidocaine. The abscess was incised with a #11 blade making about a 1.5cm incision. Large amount of white yellow pus and blood was released. The wound cavity was probed down about 2 cm deep. The cavity was copiously irrigated with 25 mL's of normal saline until there was no blood or pus returning. The cavity was packed with half-inch iodoform gauze. 4 x 4 sterile dressing was applied to the wound to catch the drainage. (VALENTE HUITRON) - Vital Signs Vital signs: Temp Pulse Resp BP Pulse Ox 98.9 F 95 20 114/50 L 99 02/16/18 12:12 02/16/18 12:12 02/16/18 12:12 02/16/18 12:12 02/16/18 12:12 - Laboratory Laboratory results interpreted by me: 02/16/18 02/16/18 02/16/18 14:55 14:55 14:55 WBC 18.4 H MCH 25.8 L Absolute Neutrophils 12.4 H Glucose 329 H Alkaline Phosphatase 146 H Total Protein 5.9 L Albumin 3.3 L Urine Glucose (UA) >=500 H Discharge <VALENTE HUITRON - Last Filed: 02/16/18 15:54> <STEPHANIE HERNANDEZ - Last Filed: 02/16/18 19:46> - Discharge Clinical Impression: Abscess of buttock, right, Poorly controlled diabetes mellitus Leukocytosis Qualifiers: Leukocytosis type: unspecified Qualified Code(s): D72.829 - Elevated white blood cell count, unspecified Condition: Stable Disposition: HOME, SELF-CARE Additional Instructions: Abscess: You have an abscess (boil). This a pus-forming infection, usually due to staph. Some boils may be left to drain on their own, but most require lancing. From the time the tender lump first appears, it may be three or four days before the abscess is ready to marcia. Local heat and rest help at this stage of treatment. An antibiotic may prevent spread of the infection. Once the abscess is opened, packing may be placed into it. This is done so pus is not sealed inside by premature closure of the cavity. The packing will be removed at your follow-up visit or you may be advised to remove it yourself at home. Sometimes this packing must be replaced a few times during healing. The wound will heal with surprisingly little scar. Depending on the size and location of an abscess, healing can take one to four weeks. You may shower and wash the area around the incision site two or three times a day. Antibiotics may be prescribed, but are usually not necessary after an abscess has been drained. If you develop fever, chilling, worsening pain, or increasing swelling in the area, call the doctor or return immediately. Take medication as prescribed. Return in 2 days to have the packing removed and to recheck the wound. Try to get your NovoLog insulin filled. Your blood sugar is probably higher than it would otherwise be, due to the infection. Soap and a warm tub of water a few times a day. After the packing was removed, keep the wound open using Q-tips dipped in peroxide and probing the full extent of the wound a few times a day, every day. RETURN TO THE EMERGENCY ROOM IF ANY NEW OR WORSENING SYMPTOMS. Prescriptions: Ciprofloxacin HCl [Cipro 500 mg Tablet] 500 mg PO BID #14 tablet Metronidazole [Flagyl 500 mg Tablet] 500 mg PO TID #21 tablet Oxycodone HCl/Acetaminophen [Percocet 5-325 mg Tablet] 1 - 2 tab PO ASDIR PRN # 15 tablet PRN Reason: Referrals: JUANCARLOS SILVA MD [Primary Care Provider] - Follow up as needed Kolbyibfrank Attestation: 02/16/18 15:59 I personally performed the services described in the documentation, reviewed and edited the documentation which was dictated to the scribe in my presence, and it accurately records my words and actions. (VALENTE HUITRON) Scribe Documentation - Scribe Written by Merlin:: Merlin Asencio, 02/15/2018 14:56 acting as scribe for :: Tomy <STEPHANIE HERNANDEZ - Last Filed: 02/16/18 19:46>
[2018-02-16] MEDS ORDERED: FENTANYL CITRATE INJ/PF 100 MCG/2 ML AMPUL IM ONE (14:37)
[2018-02-16] MEDS ORDERED: ONDANSETRON 4 MG TAB.RAPDIS PO ONE (14:39)
[2018-02-16] MEDS ORDERED: LIDOCAINE 1% INJ-PF (10 MG/ML) 30 ML SDV INJ ONE (14:39)
[2018-02-16 15:21] LABS: ABSOLUTE BASOPHILS # (AUTO) 0.2 10^3/uL (0.0-0.2); ABSOLUTE EOSINOPHILS # (AUTO) 0.5 10^3/uL (0.0-0.6); ABSOLUTE LYMPHOCYTES (AUTO) 4.5 10^3/uL (0.5-4.7); ABSOLUTE MONOCYTES (AUTO) 0.9 10^3/uL (0.1-1.4); ABSOLUTE NEUT (AUTO) 12.4 10^3/uL (1.7-8.2); BASOPHILS % (AUTO) 0.9 % (0-2); EOSINOPHILS % (AUTO) 2.6 % (0-6); HEMATOCRIT 39.8 % (36.0-47.0); HEMOGLOBIN 12.9 g/dL (12.0-15.5); LYMPHOCYTES % (AUTO) 24.4 % (13-45); MEAN CORPUSCULAR HEMOGLOBIN 25.8 pg (27.0-33.4); MEAN CORPUSCULAR HGB CONC 32.3 g/dL (32.0-36.0); MEAN CORPUSCULAR VOLUME 80 fl (80-97); MONOCYTES % (AUTO) 4.7 % (3-13); PLATELET COUNT 191 10^3/uL (150-450); RED BLOOD COUNT 4.98 10^6/uL (3.72-5.28); SEGMENTED NEUTROPHILS % (AUTO) 67.4 % (42-78); TOTAL CELLS COUNTED % (AUTO) 100 %; WHITE BLOOD COUNT 18.4 10^3/uL (4.0-10.5)
[2018-02-16 15:45] LABS: ALANINE AMINOTRANSFERASE 22 U/L (9-52); ALBUMIN 3.3 g/dL (3.5-5.0); ALKALINE PHOSPHATASE 146 U/L (38-126); ANION GAP 7 (5-19); ASPARTATE AMINO TRANSFERASE 14 U/L (14-36); BILIRUBIN,DIRECT 0.2 mg/dL (0.0-0.4); BILIRUBIN,TOTAL 0.2 mg/dL (0.2-1.3); BLOOD UREA NITROGEN 9 mg/dL (7-20); CALCIUM 9.3 mg/dL (8.4-10.2); CARBON DIOXIDE 29 mmol/L (22-30); CHLORIDE 106 mmol/L (98-107); GLUCOSE 329 mg/dL (75-110); POTASSIUM 4.7 mmol/L (3.6-5.0); SODIUM 142.2 mmol/L (137-145); TOTAL PROTEIN 5.9 g/dL (6.3-8.2)
[2018-02-16 15:53] LABS: APPEARANCE,URINE CLEAR; BILIRUBIN,URINE NEGATIVE (NEGATIVE); COLOR,URINE STRAW; GLUCOSE, URINE >=500 mg/dL (NEGATIVE); KETONES,URINE NEGATIVE (NEGATIVE); LEUKOCYTE ESTERASE,URINE NEGATIVE (NEGATIVE); NITRITE,URINE NEGATIVE (NEGATIVE); PROTEIN,URINE NEGATIVE (NEGATIVE); URINE SPECIFIC GRAVITY 1.028; UROBILINOGEN,URINE NEGATIVE mg/dL (<2.0)
[2018-02-16] MEDS ORDERED: CIPROFLOXACIN HCL 500 MG TABLET PO ONE (15:53)
[2018-02-16] MEDS ORDERED: METRONIDAZOLE 500 MG TABLET PO ONE (15:53)
[2018-02-16] MEDS ORDERED: INSULIN REG, HUMAN 100 UNIT/ML 3 ML VIAL (PYX) SUBCUT ONE (15:54)
== END 2018-02-16 16:18 | disposition home or self-care (01) ==
LOC: ER 11:53
DX: I10 Essential (primary) hypertension (principal); L02.31 Cutaneous abscess of buttock; F17.210 Nicotine dependence, cigarettes, uncomplicated; E11.65 Type 2 diabetes mellitus with hyperglycemia; Z79.4 Long term (current) use of insulin; Z88.0 Allergy status to penicillin; Z88.1 Allergy status to other antibiotic agents; Z88.2 Allergy status to sulfonamides
CPT/HCPCS: 99283; 96374; 36415; 87070; 87205; 85025; 87075; 87077; 80053; 81001; 10060; J3490 ×6; S0119; J3010; J1815

== ENCOUNTER 2019-03-10 01:45 | Emergency (ER) | payer MEDICAID ==
[2019-03-10] MEDS ORDERED: PROMETHAZINE HCL 25 MG TABLET PO ONE (04:55)
[2019-03-10] MEDS ORDERED: OXYCODONE-ACETAMINOPHEN 5-325 MG TABLET PO ONE (04:55)
[2019-03-10] MEDS ORDERED: LIDOCAINE 4% TRANSPARENT DRESSING 5 GM KIT TP ONE (04:55)
--- NOTE | 2019-03-10 04:56 | ER Document Report ---
ED Skin Rash/Insect Bite/Abscs - General Chief Complaint: Cyst Stated Complaint: CYST ON LEFT THIGH, BUTTOCKS Time Seen by Provider: 03/10/19 04:50 Primary Care Provider: JUANCARLOS SILVA MD [ACTIVE STAFF] - Follow up in 3-5 days Notes: Patient is a 33-year-old female that comes to the emergency department for chief complaint of an abscess on the left lower buttock for the past 2 to 3 days. She states it drained a little but then stopped and has not resolved. She denies fever/chills. She has a history of abscesses. She does have insulin-dependent diabetes as well. She denies painful bowel movements, she denies any other complaints. TRAVEL OUTSIDE OF THE [place] IN LAST 30 DAYS: No - Related Data Allergies/Adverse Reactions: amoxicillin Allergy (Verified 02/16/18 13:29) clindamycin Allergy (Verified 02/16/18 13:29) Penicillins Allergy (Verified 02/16/18 13:29) Sulfa (Sulfonamide Antibiotics) Allergy (Verified 02/16/18 13:29) Past Medical History - General Information source: Patient - Social History Smoking Status: Never Smoker Frequency of alcohol use: None Drug Abuse: None Lives with: Family Family History: Reviewed & Not Pertinent - Past Medical History Cardiac Medical History: Reports: Hx Hypertension Endocrine Medical History: Reports: Hx Diabetes Mellitus Type 2 Renal/ Medical History: Reports: Hx Kidney Stones. Denies: Hx Peritoneal Dialysis Skin Medical History: Denies Hx MRSA Past Surgical History: Reports: Hx Oral Surgery - Immunizations Hx Diphtheria, Pertussis, Tetanus Vaccination: Yes Review of Systems - Review of Systems Constitutional: No symptoms reported EENT: No symptoms reported Cardiovascular: No symptoms reported Respiratory: No symptoms reported Gastrointestinal: No symptoms reported Genitourinary: No symptoms reported Female Genitourinary: No symptoms reported Musculoskeletal: No symptoms reported Skin: See HPI Hematologic/Lymphatic: No symptoms reported Neurological/Psychological: No symptoms reported Physical Exam - Vital signs Vitals: Temp Pulse Resp BP Pulse Ox 98.4 F 108 H 15 144/79 H 98 03/10/19 01:50 03/10/19 01:50 03/10/19 01:50 03/10/19 01:50 03/10/19 01:50 - Notes Notes: GENERAL: Alert, interacts well. No acute distress. HEAD: Normocephalic, atraumatic. EYES: Pupils equal, round, and reactive to light. Extraocular movements intact. ENT: Oral mucosa moist, tongue midline. Oropharynx unremarkable. Airway patent. LUNGS: Clear to auscultation bilaterally, no wheezes, rales, or rhonchi. No respiratory distress. HEART: Regular rate and rhythm. No murmur ABDOMEN: Soft, non-tender. Non-distended. Bowel sounds present in all 4 quadrants. GENITOURINARY: Deferred EXTREMITIES: Moves all 4 extremities spontaneously. No edema, normal radial and dorsalis pedis pulses bilaterally. No cyanosis. BACK: no cervical, thoracic, lumbar midline tenderness. No saddle anesthesia, normal distal neurovascular exam. NEUROLOGICAL: Alert and oriented x3. Normal speech. Cranial nerves II through XII grossly intact. PSYCH: Normal affect, normal mood. SKIN: There is an abscess at the base of the left buttock over the medial aspect, this has some mild surrounding cellulitis, there is also nearby erythema suggestive of yeast, however the tenderness, induration, fluctuance, and rhythm I do not extend to the perianal area. Course - Re-evaluation Re-evalutation: Evaluation consistent with abscess, this was clean, drain, patient was given Diflucan, she was given doxycycline based on her allergies and reported antibiotic she will not take. Patient refused to let me cut this to the extent that I wanted and she also declined packing. I discussed careful cleaning, dressing, follow-up, and return precautions with patient and family member. They state understanding and agreement with plan. - Vital Signs Vital signs: Temp Pulse Resp BP Pulse Ox 98.4 F 108 H 15 144/79 H 98 03/10/19 01:50 03/10/19 01:50 03/10/19 01:50 03/10/19 01:50 03/10/19 01:50 Procedures - Incision and Drainage Left medial buttock Type: Single Anesthetic type: Other - L.E.T. Blade size: 11 I&D procedure: Shurclens applied, Sterile dressing applied Incision Method: Incision made by scalpel Amount/type of drainage: about 10 cc of purulent drainage Discharge - Discharge Clinical Impression: Abscess Condition: Stable Disposition: HOME, SELF-CARE Additional Instructions: The abscess has been drained. Keep clean, clean with soap and water, keep absorbing dressing over the area. You have been treated with Diflucan for the yeast, take the Diflucan again after you complete the doxycycline antibiotic. Follow-up closely with primary care. Return if you worsen including developing or spreading redness, fever/chills, or any other concerning or worsening symptoms. Prescriptions: Doxycycline Hyclate 100 mg PO BID #14 capsule Fluconazole [Diflucan] 150 mg PO ONCE PRN #1 tablet PRN Reason: Referrals: JUANCARLOS SILVA MD [ACTIVE STAFF] - Follow up in 3-5 days
[2019-03-10] MEDS ORDERED: FLUCONAZOLE 100 MG TABLET PO ONE (06:09)
[2019-03-10 06:34] VITALS: BP 134/83
== END 2019-03-10 06:25 | disposition home or self-care (01) ==
LOC: ER 01:45
DX: L02.31 Cutaneous abscess of buttock (principal); L03.317 Cellulitis of buttock; E11.9 Type 2 diabetes mellitus without complications; Z79.4 Long term (current) use of insulin; I10 Essential (primary) hypertension; Z88.0 Allergy status to penicillin; Z88.1 Allergy status to other antibiotic agents; Z88.2 Allergy status to sulfonamides
CPT/HCPCS: 99283; 10060; J3490 ×3

== ENCOUNTER 2019-06-04 08:00 | Emergency (ER) | payer MEDICAID ==
[2019-06-04 09:59] LABS: ABSOLUTE BASOPHILS # (AUTO) 0.1 10^3/uL (0.0-0.2); ABSOLUTE EOSINOPHILS # (AUTO) 0.4 10^3/uL (0.0-0.6); ABSOLUTE MONOCYTES (AUTO) 0.7 10^3/uL (0.1-1.4); ABSOLUTE NEUT (AUTO) 8.2 10^3/uL (1.7-8.2); BASOPHILS % (AUTO) 0.9 % (0-2); EOSINOPHILS % (AUTO) 2.8 % (0-6); HEMATOCRIT 37.5 % (36.0-47.0); HEMOGLOBIN 12.1 g/dL (12.0-15.5); LYMPHOCYTES % (AUTO) 29.8 % (13-45); MEAN CORPUSCULAR HEMOGLOBIN 25.9 pg (27.0-33.4); MEAN CORPUSCULAR HGB CONC 32.3 g/dL (32.0-36.0); MEAN CORPUSCULAR VOLUME 80 fl (80-97); MONOCYTES % (AUTO) 5.2 % (3-13); PLATELET COUNT 197 10^3/uL (150-450); RED BLOOD COUNT 4.68 10^6/uL (3.72-5.28); RED CELL DISTRIBUTION WIDTH 14.5 % (11.5-14.0); SEGMENTED NEUTROPHILS % (AUTO) 61.3 % (42-78); TOTAL CELLS COUNTED % (AUTO) 100 %; WHITE BLOOD COUNT 13.4 10^3/uL (4.0-10.5)
[2019-06-04 10:03] LABS: APPEARANCE,URINE CLEAR; BILIRUBIN,URINE NEGATIVE (NEGATIVE); COLOR,URINE YELLOW; GLUCOSE, URINE NEGATIVE (NEGATIVE); KETONES,URINE NEGATIVE (NEGATIVE); LEUKOCYTE ESTERASE,URINE NEGATIVE (NEGATIVE); NITRITE,URINE NEGATIVE (NEGATIVE); PROTEIN,URINE NEGATIVE (NEGATIVE); UROBILINOGEN,URINE NEGATIVE mg/dL (<2.0)
[2019-06-04] MEDS ORDERED: DIPHENHYDRAMINE HCL 50 MG/ML VIAL IV ONE (10:23)
[2019-06-04] MEDS ORDERED: KETOROLAC TROMETHAMINE INJ/PF 30 MG/1 ML SDV IV ONE (10:23)
[2019-06-04] MEDS ORDERED: NORMAL SALINE 1000 ML 1,000 ML IV ONE (10:23)
[2019-06-04] MEDS ORDERED: METOCLOPRAMIDE HCL INJ/PF 10 MG/2 ML SDV IV ONE (10:23)
--- NOTE | 2019-06-04 10:29 | ER Document Report ---
ED GI/ - General Chief Complaint: Nausea/Vomiting/Diarrhea Stated Complaint: NAUSEA/VOMITNG Time Seen by Provider: 06/04/19 10:12 Primary Care Provider: MOHAMUD SAMPSON PA-C [Primary Care Provider] - Follow up as needed Notes: Patient is a 33-year-old female with a history of gallstones who presents to the emergency department with a chief complaint of right upper quadrant pain. Patient states around 330 this morning she woke up with nausea, vomiting and diarrhea. Patient reports her pain is specifically in the right upper quadrant and feels like it is underneath her right rib. Patient also reports developing a headache this morning after multiple episodes of vomiting. Patient denies fever. Patient denies blood in stool. Patient reports she has had 2 episodes of vomiting and 7 episodes of nonbloody liquid diarrhea. Patient reports she is also having a frontal headache. Patient denies visual changes or photosensitivity. Patient denies urinary symptoms. Patient reports she is a type II diabetic on insulin and she is supposed to start on metformin which is asked to get a prescription filled. Patient denies vaginal bleeding or discharge. Patient reports her last menstrual cycle was May 15. TRAVEL OUTSIDE OF THE [place] IN LAST 30 DAYS: No - Related Data Allergies/Adverse Reactions: amoxicillin Allergy (Verified 06/04/19 08:01) clindamycin Allergy (Verified 06/04/19 08:01) Penicillins Allergy (Verified 06/04/19 08:01) Sulfa (Sulfonamide Antibiotics) Allergy (Verified 06/04/19 08:01) Past Medical History - General Information source: Patient - Social History Smoking Status: Unknown if Ever Smoked Lives with: Family Family History: Reviewed & Not Pertinent Patient has suicidal ideation: No Patient has homicidal ideation: No - Past Medical History Cardiac Medical History: Reports: Hx Hypertension Pulmonary Medical History: Reports: None EENT Medical History: Reports: None Neurological Medical History: Reports: None Endocrine Medical History: Reports: Hx Diabetes Mellitus Type 2 Renal/ Medical History: Reports: Hx Kidney Stones. Denies: Hx Peritoneal Dialysis Malignancy Medical History: Reports: None GI Medical History: Reports: None Musculoskeletal Medical History: Reports None Skin Medical History: Reports None, Denies Hx MRSA Psychiatric Medical History: Reports: None Traumatic Medical History: Reports: None Infectious Medical History: Reports: None Past Surgical History: Reports: Hx Oral Surgery - Immunizations Hx Diphtheria, Pertussis, Tetanus Vaccination: Yes Review of Systems - Review of Systems Constitutional: No symptoms reported EENT: No symptoms reported Cardiovascular: No symptoms reported Respiratory: No symptoms reported Gastrointestinal: See HPI Genitourinary: No symptoms reported Female Genitourinary: No symptoms reported Musculoskeletal: No symptoms reported Skin: No symptoms reported Hematologic/Lymphatic: No symptoms reported Neurological/Psychological: See HPI Physical Exam - Vital signs Vitals: Temp Pulse Resp BP Pulse Ox 98.3 F 81 19 132/86 H 98 06/04/19 08:04 06/04/19 08:04 06/04/19 08:04 06/04/19 08:04 06/04/19 08:04 Interpretation: Normal - Notes Notes: GENERAL: Well-appearing, well-nourished and in no acute distress. HEAD: Atraumatic, normocephalic. EYES: Pupils equal round and reactive to light, extraocular movements intact, sclera anicteric, conjunctiva are normal. ENT: Nares patent, oropharynx clear without exudates. Moist mucous membranes. NECK: Normal range of motion, supple without lymphadenopathy or JVD. LUNGS: Breath sounds clear to auscultation bilaterally and equal. No wheezes rales or rhonchi. HEART: Regular rate and rhythm without murmurs, rubs or gallops. ABDOMEN: Soft, RUQ tenderness/epigastric tenderness, normoactive bowel sounds. No guarding, no rebound. No masses appreciated. BACK: No cervical, thoracic, lumbar midline tenderness. No saddle anesthesia, normal distal neurovascular exam. GENITOURINARY: Deferred. EXTREMITIES: Normal range of motion, no pitting or edema. No clubbing or cyanosis. NEUROLOGICAL: Cranial nerves II through XII grossly intact. Normal speech, normal gait. PSYCH: Normal mood, normal affect. SKIN: Warm, Dry, normal turgor, no rashes or lesions noted. Course - Re-evaluation Re-evalutation: 06/04/19 12:04 Upon reevaluation patient reports that her headache is completely improved. Patient states that the abdominal pain is now only present when she coughs, sits up and uses her abdominal muscles. I do not believe that at this time she requires CT imaging of her abdomen. Patient does agree with this as well. Patient's labs are unremarkable. Patient did receive 1 L of IV fluids. Patient feels comfortable going home and strict return precautions given. Patient is nontoxic-appearing. I did reevaluate complete the abdomen with minimal tenderness to the right upper quadrant but no other areas of the abdomen. Abdomen is nice and soft with active bowel sounds. - Vital Signs Vital signs: Temp Pulse Resp BP Pulse Ox 98.3 F 81 19 132/86 H 98 06/04/19 08:04 06/04/19 08:04 06/04/19 08:04 06/04/19 08:04 06/04/19 08:04 - Laboratory Result Diagrams: 06/04/19 09:45 06/04/19 09:45 Laboratory results interpreted by me: 06/04/19 06/04/19 09:45 09:45 WBC 13.4 H MCH 25.9 L RDW 14.5 H Creatinine 0.43 L Glucose 176 H Total Protein 5.6 L Albumin 3.2 L - Diagnostic Test Radiology reviewed: Reports reviewed Radiology results interpreted by me: 06/04/19 11:32 Abdomen Ultrasound 06/04/19 10:22 IMPRESSION: NORMAL RIGHT UPPER QUADRANT ULTRASOUND. Discharge - Discharge Clinical Impression: RUQ abdominal pain Nausea & vomiting Qualifiers: Vomiting type: unspecified Vomiting Intractability: non-intractable Qualified Code(s): R11.2 - Nausea with vomiting, unspecified Diarrhea Qualifiers: Diarrhea type: unspecified type Qualified Code(s): R19.7 - Diarrhea, unspecified Condition: Stable Disposition: HOME, SELF-CARE Additional Instructions: Today you are seen in the emergency department for abdominal pain. We did obtain basic lab work, urinalysis and an ultrasound of the right upper quadrant. All of this testing was normal and very reassuring. After receiving medications and IV fluids report feeling much better. I will give you antinausea medications to go home with. Please seek medical attention if your symptoms worsen, if the abdominal pain changes or becomes localized in one area, develop a high fever, weak lightheaded or any other concerning signs or symptoms. Please push fluids and stay hydrated. Please rest today. Diarrhea Diarrhea means frequent, watery stools. There are many causes. Any problem that keeps the intestinal tract from absorbing water from the stool can lead to diarrhea. A sudden new diarrhea problem is usually caused by a virus, food sensitivity, toxic bacteria, or drugs. In this case, we expect the problem to go away soon. Testing is done only if you seem seriously ill from the diarrhea. If you have chronic diarrhea, or diarrhea that keeps coming back, we need to find out why. Chronic diarrhea can be due to inflammation of the bowels such as Crohn's disease or ulcerative colitis, food sensitivity such as intolerance to lactose or wheat protein, irritable bowel syndrome, and other problems. If your diarrhea is a significant problem but it's not clear why you have it, we'll refer you to a specialist for further testing. During an episode of diarrhea, drink small amounts (two to six ounces) of clear liquids (soft drinks, sport drinks, herb teas, broth, etc). Take fluids frequently to prevent dehydration. It's usually not a problem to take mild anti- diarrhea medication such as Kaopectate or Pepto-Bismol. As the diarrhea eases, advance to small amounts of bland food (mashed potato, toast) for 24 hours. Call the physician if blood appears in your vomit or stool, if vomiting lasts longer than 24 hours, if the abdominal pain worsens or becomes localized to one area, if you develop high fever, or if you become lightheaded and weak. Abdominal Pain There are many causes of abdominal pain. Pain can mean a serious problem requiring surgery (such as appendicitis). It can also be an innocent problem that goes away on its own (such as a viral infection). Often, time must pass to determine the cause of pain. The physician does not feel that hospitalization is necessary, at present. Things may change within the next 24 hours. Call the doctor or come back for re-examination if any problems occur, such as: (1) Pain that becomes more severe, steady, or becomes concentrated in one specific area. Also, pain that is more severe with movement or coughing. (2) Vomiting that persists or becomes more frequent. (3) Blood in the vomitus, urine, or bowel movements. Blood in the stool may have a tarry or black appearance. (4) Shaking chills or fever greater than 100 degrees F. (5) The abdomen becomes more distended or swollen. (6) Bowel movements cease. (7) Failure to improve as expected. Forms: Return to Work Referrals: MOHAMUD SAMPSON PA-C [Primary Care Provider] - Follow up as needed
[2019-06-04 10:36] LABS: ALBUMIN 3.2 g/dL (3.5-5.0); ALKALINE PHOSPHATASE 88 U/L (38-126); ANION GAP 5 (5-19); ASPARTATE AMINO TRANSFERASE 16 U/L (14-36); BILIRUBIN,DIRECT 0.1 mg/dL (0.0-0.4); BILIRUBIN,TOTAL 0.2 mg/dL (0.2-1.3); BLOOD UREA NITROGEN 11 mg/dL (7-20); CALCIUM 8.7 mg/dL (8.4-10.2); CARBON DIOXIDE 28 mmol/L (22-30); CHLORIDE 106 mmol/L (98-107); GLUCOSE 176 mg/dL (75-110); POTASSIUM 4.3 mmol/L (3.6-5.0); TOTAL PROTEIN 5.6 g/dL (6.3-8.2)
--- NOTE | 2019-06-04 11:29 | RADIOLOGY REPORT (SQ) ---
EXAM DESCRIPTION: U/S ABDOMEN LIMITED W/O DOP COMPLETED DATE/TIME: 06/04/2019 11:13 am REASON FOR STUDY: RUQ pain, hx. gallstones COMPARISON: None. TECHNIQUE: Dynamic and static grayscale images acquired of the abdomen and recorded on PACS. Additio leslie selected color Doppler and spectral images recorded. LIMITATIONS: None. FINDINGS: PANCREAS: No masses. Visualized pancreatic duct normal caliber. LIVER: No masses. Echotexture normal. LIVER VASCULATURE: Normal directional flow of the main portal vein and hepatic veins. GALLBLADDER: No stones. Normal wall thickness. No pericholecystic fluid. ULTRASOUND-DETECTED FAIRBANKS'S SIGN: Negative. INTRAHEPATIC DUCTS AND COMMON DUCT: CBD and intrahepatic ducts normal caliber. No filling defects. INFERIOR VENA CAVA: Normal flow. AORTA: No aneurysm. RIGHT KIDNEY: Normal size. Normal echogenicity. No solid or suspicious masses. No hydronephrosis. No calcifications. PERITONEAL AND RIGHT PLEURAL SPACE: No ascites or effusions. OTHER: No other significant findings. IMPRESSION: NORMAL RIGHT UPPER QUADRANT ULTRASOUND. TECHNICAL DOCUMENTATION: JOB ID: [id number] [employer]- All Rights Reserved Reading location - IP/workstation name: [email or web address]
[2019-06-04] MEDS ORDERED: ONDANSETRON ODT 4 MG TAB (6 TAB/ER DISP) PO PRN (12:07)
[2019-06-04 12:34] VITALS: BP 125/81
== END 2019-06-04 12:33 | disposition home or self-care (01) ==
LOC: ER 08:00
DX: R10.11 Right upper quadrant pain (principal); R11.2 Nausea with vomiting, unspecified; R19.7 Diarrhea, unspecified; E11.9 Type 2 diabetes mellitus without complications; Z79.4 Long term (current) use of insulin; I10 Essential (primary) hypertension
CPT/HCPCS: 36415; 83690; 85025; 81025; 80053; 81001; 76705; J1200; J1885; J2765; J7030; 96361; 96374; 96375; 99284

== ENCOUNTER → 2020-04-08 | Outpatient (CLI) | payer MEDICAID ==
[2020-04-08 11:55] LABS: ABSOLUTE BASOPHILS # (AUTO) 0.1 10^3/uL (0.0-0.2); ABSOLUTE EOSINOPHILS # (AUTO) 0.3 10^3/uL (0.0-0.6); ABSOLUTE LYMPHOCYTES (AUTO) 3.8 10^3/uL (0.5-4.7); ABSOLUTE MONOCYTES (AUTO) 0.6 10^3/uL (0.1-1.4); ABSOLUTE NEUT (AUTO) 10.8 10^3/uL (1.7-8.2); BASOPHILS % (AUTO) 0.6 % (0-2); EOSINOPHILS % (AUTO) 2.1 % (0-6); HEMOGLOBIN 13.5 g/dL (12.0-15.5); LYMPHOCYTES % (AUTO) 24.5 % (13-45); MEAN CORPUSCULAR HEMOGLOBIN 26.1 pg (27.0-33.4); MEAN CORPUSCULAR HGB CONC 32.9 g/dL (32.0-36.0); MEAN CORPUSCULAR VOLUME 79 fl (80-97); MONOCYTES % (AUTO) 4.1 % (3-13); PLATELET COUNT 200 10^3/uL (150-450); RED BLOOD COUNT 5.17 10^6/uL (3.72-5.28); RED CELL DISTRIBUTION WIDTH 13.8 % (11.5-14.0); SEGMENTED NEUTROPHILS % (AUTO) 68.7 % (42-78); TOTAL CELLS COUNTED % (AUTO) 100 %; WHITE BLOOD COUNT 15.7 10^3/uL (4.0-10.5)
[2020-04-08 12:18] LABS: ALBUMIN 3.9 g/dL (3.5-5.0); ALKALINE PHOSPHATASE 135 U/L (38-126); ANION GAP 5 (5-19); ASPARTATE AMINO TRANSFERASE 15 U/L (14-36); BILIRUBIN,DIRECT 0.1 mg/dL (0.0-0.4); BILIRUBIN,TOTAL 0.6 mg/dL (0.2-1.3); BLOOD UREA NITROGEN 8 mg/dL (7-20); CALCIUM 9.4 mg/dL (8.4-10.2); CARBON DIOXIDE 29 mmol/L (22-30); CHLORIDE 100 mmol/L (98-107); CHOLESTEROL 189.45 mg/dL (0-200); GLUCOSE 328 mg/dL (75-110); POTASSIUM 4.7 mmol/L (3.6-5.0); TOTAL PROTEIN 6.8 g/dL (6.3-8.2); TRIGLYCERIDES 74 mg/dL (<150)
[2020-04-08 12:29] LABS: DIRECT LDL 147 mg/dL (<100)
== END ==
LOC: OD 11:09
PROVIDERS: ATTEND Internal Medicine
DX: E11.9 Type 2 diabetes mellitus without complications (principal); R53.83 Other fatigue; D72.829 Elevated white blood cell count, unspecified
CPT/HCPCS: 36415; 80053; 80061; 82043; 82570; 83036; 83525; 84443; 84681; 85025